=== PATIENT | male | born 1980 | race Caucasian/White ===

== ENCOUNTER 2024-10-09 07:56 | Emergency (ER) | payer SELFPAY | END 2024-10-09 08:56 | disposition home or self-care (01) | LOC: MW.ED 07:56 | DX: S46.211A Strain of muscle, fascia and tendon of other parts of biceps, right arm, initial encounter (principal); Z75.8 Other problems related to medical facilities and other health care; W24.0XXA Contact with lifting devices, not elsewhere classified, initial encounter | CPT/HCPCS: 99283 ==